=== PATIENT | male | born 1975 | race Caucasian/White ===

== ENCOUNTER 2018-12-15 02:10 | Outpatient (CLI) | payer SELFPAY | END 2018-12-15 02:11 | disposition EMS.NT | LOC: EMS 02:10 | PROVIDERS: ATTEND Surgery | DX: T16.1XXA Foreign body in right ear, initial encounter (principal); X58.XXXA Exposure to other specified factors, initial encounter; Y92.149 Unspecified place in prison as the place of occurrence of the external cause ==

== ENCOUNTER 2020-03-29 19:02 | Outpatient (CLI) | payer OTHER | END 2020-03-29 19:03 | disposition home or self-care (01) | LOC: COV 19:02 | PROVIDERS: ATTEND Family Medicine | DX: R05 Cough (principal); J02.9 Acute pharyngitis, unspecified | CPT/HCPCS: 81599 ==

== ENCOUNTER 2020-04-07 08:46 | Emergency (ER) | payer OTHER ==
[2020-04-07 09:13] LABS: RAPID STREP SCREEN Negative (Negative)
--- NOTE | 2020-04-07 09:22 | XRAY Report ---
Reason: cough Procedure Date: 04/07/2020 Accession Number: [id number] / [id number] Procedure: XR - Chest 2 View X-Ray CPT Code: 06635 Final Report FULL RESULT: EXAM: CHEST RADIOGRAPHY EXAM DATE: 04/07/2020 09:07 AM. CLINICAL HISTORY: Non-productive cough, shortness of breath. COMPARISON: None. TECHNIQUE: 2 views. FINDINGS: Lungs/Pleura: No focal opacities evident. No pleural effusion. No pneumothorax. Normal volumes. Mediastinum: Heart and mediastinal contours are unremarkable. Other: None. IMPRESSION: Normal 2-view chest radiography. [facility]
--- NOTE | 2020-04-07 09:39 | ED Physician Documentation ---
PD HPI CHEST PAIN - Stated complaint Stated Complaint: CHEST PX/SOA - Chief complaint Chief Complaint: Resp - History obtained from History obtained from: Patient - History of Present Illness Timing - onset: How many weeks ago (3) Timing - duration: Weeks (3) Timing - details: Gradual onset, Still present, Waxing and waning Quality: Pressure, Aching Location: Substernal Radiation: No: Jaw, Neck, Back, Abdominal, Left upper extremity, Right upper extremity Improved by: Rest Worsened by: Inspiration, Palpation Associated symptoms: Shortness of air, Cough Similar symptoms before: Has not had sx before Recently seen: Not recently seen - Additional information Additional information: 44-year-old male with a prior history of bronchitis has developed a cough about 3 weeks ago the cough has persisted he did take some Cipro which helped with his phlegm but the cough has persisted and he is developed some pain in his anterior chest. He has some pain with a deep breath and with movement. He states the pain is not severe. He has not been able to get in to see a physician and he is come to the emergency department. Review of Systems Constitutional: denies: Fever, Myalgias, Fatigue Eyes: denies: Decreased vision Ears: denies: Ear pain Nose: denies: Rhinorrhea / runny nose, Congestion Throat: reports: Sore throat Cardiac: reports: Chest pain / pressure. denies: Palpitations, Pedal edema, Calf pain Respiratory: reports: Dyspnea, Cough GI: denies: Abdominal Pain, Nausea, Vomiting : denies: Dysuria, Frequency PD PAST MEDICAL HISTORY - Past Medical History Past Medical History: No Cardiovascular: None Respiratory: None Neuro: None Endocrine/Autoimmune: None GI: None : None HEENT: None Psych: None Musculoskeletal: None Derm: None - Past Surgical History Past Surgical History: No - Present Medications Home Medications: Ambulatory Orders Medication Instructions Recorded Confirmed Azithromycin [Zithromax] 250 mg PO DAILY #6 tablet 04/07/20 - Allergies Allergies/Adverse Reactions: Allergies Allergy/AdvReac Type Severity Reaction Status Date / Time No Known Drug Allergies Allergy Verified 04/07/20 08:56 - Social History Does the pt smoke?: No Smoking Status: Never smoker - Immunizations Immunizations are current?: Yes - POLST Patient has POLST: No PD ED PE NORMAL - Vitals Vital signs reviewed: Yes (hypertensive) - General General: Alert and oriented X 3, No acute distress - HEENT HEENT: Atraumatic, PERRL, EOMI, Ears normal, Moist mucous membranes, Dentition benign, Other (mild posterior pharyngeal erythema/exudate) - Neck Neck: Supple, no meningeal sign, No bony TTP - Cardiac Cardiac: RRR, No murmur - Respiratory Respiratory: No respiratory distress, Clear bilaterally, Other (there is anterior para-sternal tenderness reproducing the patients symptoms. ) - Abdomen Abdomen: Soft, Non tender - Back Back: No CVA TTP, No spinal TTP - Derm Derm: Normal color, Warm and dry, No rash - Extremities Extremities: No deformity, No edema Results - Vitals Vitals: Vital Signs - 24 hr 04/07/20 04/07/20 08:56 09:31 Temperature 36.8 C Heart Rate 69 63 Respiratory 17 15 Rate Blood Pressure 159/88 H O2 Saturation 97 99 Oxygen O2 Source Room air - EKG (time done) 0851 Rate: Rate (enter#) (67) Rhythm: NSR [place]: LAD Ischemia: Normal ST segments Compare to prior EKG: Old EKG unavailable Computer interpretation: Agree with computer - Labs Labs: Laboratory Tests 04/07/20 09:00 Group A Strep Rapid Negative PD MEDICAL DECISION MAKING - ED course Complexity details: reviewed results, re-evaluated patient, considered differential, d/w patient ED course: Previously well 44-year-old male with a 3-week history of URI with persistent cough is tested negative for COVID 1 week ago his symptoms are most consistent with a bronchitis he has had a bronchitis previously is never had to use an inhaler previously he does not need an inhaler today. He does appear to have some costochondritis anteriorly in his chest and we will provide him with some dexamethasone today and place him on a Z-Mir. He has had improvement previously with a azithromycin under similar circumstances. Departure - Departure Disposition: 01 Home, Self Care Clinical Impression: Costochondritis, acute, Bronchitis Condition: Stable Instructions: ED Upper Resp Infec Abx Tx, ED Chest Pain Costochondritis Follow-Up: AZAR HEDRICK MD [Physician No Access] - Prescriptions: Azithromycin [Zithromax] 250 mg PO DAILY #6 tablet
[2020-04-07 09:54] VITALS: BP 140/78
[2020-04-07] MEDS: CHERRY SYRUP 10 ML UDC PO ONE (09:55)
[2020-04-07] MEDS: DEXAMETHASONE 10 MG/ML VIAL PO STA (09:55)
== END 2020-04-07 09:58 | disposition home or self-care (01) ==
LOC: ED 08:46
DX: M94.0 Chondrocostal junction syndrome [Tietze] (principal); J40 Bronchitis, not specified as acute or chronic
CPT/HCPCS: 71046; 87070; 87430; 93005; 99284; A9270